=== PATIENT | female | born 1940 | race Two or more races ===

== ENCOUNTER 2020-04-14 21:06 | Emergency (ER) | payer BC, MEDICAID ==
[~2020-04-14] VITALS: Ht 154.9 cm; Wt 49.4 kg
[2020-04-14] MEDS ORDERED: Lidocaine 2% 20mg/ml/EPI 0.01mg/ml 20ml INJ ONE (21:15)
[2020-04-14] MEDS ORDERED: Tetanus/Diptheria/Pertussis IM ONE (21:15)
--- NOTE | 2020-04-14 21:15 | NUR ---
ED Nurse Note: Patient brought in [facility] due to fall at the facility around 1830. Patient came in with laceration and swelling on right forehead. Fall was unwitnessed per EMS, no reported LOC, no N&V. PAtient is AAOx1 and alert. Minimal bleeding noted.
--- NOTE | 2020-04-14 21:16 | Emergency Room Report ---
History of Present Illness General Chief Complaint: Multiple Trauma/Fall Source: Medical Record, EMS Present Illness HPI Patient is an 79-year-old female past medical history of dementia, CVA on Xarelto who was brought in from her extended care facility to the ER by EMS status post fall. Fall was unwitnessed. Patient has laceration to her right forehead. Unable to obtain further history. 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 Patient signed out to Dr. Mora at 2200. Last Vital Signs Date Time Temp Pulse Resp B/P (MAP) Pulse Ox O2 Delivery O2 Flow Rate FiO2 04/14/20 21:10 98.2 89 18 145/79 (101) 99 Room Air Elena Rice M.D. Apr 14, 2020 21:16
--- NOTE | 2020-04-14 21:16 | NUR ---
ED Nurse Note: ERMD at bedside
[2020-04-14 21:30] VITALS: BP 145/79
--- NOTE | 2020-04-14 21:40 | NUR ---
ED Nurse Note: CT scan done
--- NOTE | 2020-04-14 22:00 | NUR ---
ED Nurse Note: Suturing done by ERMD at bedside
--- NOTE | 2020-04-14 22:12 | Diagnostic Imaging Report ---
EXAM: CT Maxillofacial Without Intravenous Contrast CLINICAL HISTORY: FALL TECHNIQUE: Axial computed tomography images of the face without intravenous contrast. CTDI is 15.3 mGy and DLP is 320.0 mGy-cm. One or more of the following dose reduction techniques were used: automated exposure control, adjustment of the mA and/or kV according to patient size, use of iterative reconstruction technique. COMPARISON: No relevant prior studies available. FINDINGS: Bones/joints: No acute fracture. Soft tissues: Mild right periorbital soft tissue swelling. Orbits: Unremarkable. Sinuses: Unremarkable. No air-fluid levels. Brain: Geographic region of hypoattenuation in the left cerebral hemisphere is consistent with a large remote left MCA distribution infarct. There is atrophy and central hypoattenuation within the left cerebral peduncle consistent with wallerian degeneration. Additional smaller regions of hypoattenuation involving the cortical and subcortical white matter in the right anterior frontal and the superior right parietal and temporal distributions likely represent additional areas of smaller remote infarcts. Patchy and confluent regions of hypoattenuation scattered throughout the supratentorial white matter are nonspecific, but likely sequela of chronic microvascular ischemic disease. There is mild generalized cerebral volume loss. Ventricles: Mild ex vacuo dilatation of the left lateral ventricle. IMPRESSION: Mild right periorbital soft tissue swelling. Remote cerebral infarct changes, as above.
--- NOTE | 2020-04-14 22:15 | Diagnostic Imaging Report ---
EXAM: CT Head Without Intravenous Contrast CLINICAL HISTORY: FALL TECHNIQUE: Axial computed tomography images of the head/brain without intravenous contrast. CTDI is 53.4 mGy and DLP is 911.8 mGy-cm. One or more of the following dose reduction techniques were used: automated exposure control, adjustment of the mA and/or kV according to patient size, use of iterative reconstruction technique. COMPARISON: No relevant prior studies available. FINDINGS: Brain: Geographic region of hypoattenuation in the left cerebral hemisphere is consistent with a large remote left MCA distribution infarct. There is atrophy and central hypoattenuation within the left cerebral peduncle consistent with wallerian degeneration. Additional smaller regions of hypoattenuation involving the cortical and subcortical white matter in the right anterior frontal and the superior right parietal and temporal distributions likely represent additional areas of smaller remote infarcts. Patchy and confluent regions of hypoattenuation scattered throughout the supratentorial white matter are nonspecific, but likely sequela of chronic microvascular ischemic disease. There is mild generalized cerebral volume loss. No hemorrhage. Ventricles: Mild ex vacuo dilatation of the left lateral ventricle. Bones/joints: Unremarkable. No acute fracture. Soft tissues: Unremarkable. Sinuses: Unremarkable as visualized. No acute sinusitis. Mastoid air cells: Unremarkable as visualized. No mastoid effusion. IMPRESSION: No acute findings in the head/brain. 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 Smaller remote infarcts also suspected within the right cerebral hemisphere.
--- NOTE | 2020-04-14 22:20 | Diagnostic Imaging Report ---
EXAM: CT Cervical Spine Without Intravenous Contrast CLINICAL HISTORY: FALL TECHNIQUE: Axial computed tomography images of the cervical spine without intravenous contrast. CTDI is 20.0 mGy and DLP is 414.5 mGy-cm. One or more of the following dose reduction techniques were used: automated exposure control, adjustment of the mA and/or kV according to patient size, use of iterative reconstruction technique. COMPARISON: No relevant prior studies available. FINDINGS: Vertebrae: Unremarkable. No acute fracture. Discs/spinal canal/neural foramina: No acute findings. No spinal canal stenosis. Soft tissues: Unremarkable. Vasculature: Mild atherosclerotic calcifications of both left and right carotids. Scattered calcifications of both left and right vertebral arteries. IMPRESSION: No acute findings in the cervical spine.
--- NOTE | 2020-04-14 22:26 | Emergency Room Report ---
History of Present Illness General Chief Complaint: Multiple Trauma/Fall Source: Medical Record, EMS Present Illness HPI This patient was signed out to me. She is an elderly 79-year-old female from [facility]. She had a unwitnessed fall and sustained a laceration to her forehead. CT scan was signed out to me along with the laceration repair. 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 COVID-19 Screening: Negative COVID-19 COVID-19 Testing Source: snf Nursing Documentation-PMH Hx Cardiac Problems: Yes Hx Hypertension: Yes Hx Neurological Problems: Yes - APHASIA Hx Cerebrovascular Accident: Yes Physical Exam Vital Signs Date Time Temp Pulse Resp B/P (MAP) Pulse Ox O2 Delivery O2 Flow Rate FiO2 04/14/20 21:10 98.2 89 18 145/79 (101) 99 Room Air Procedures Laceration/Wound Repair Laceration/Wound Repair : Consent: Verbal Wound Location: face Wound's Depth, Shape: irregular, contused tissue Wound Length (cm): 3 Wound Explored: clean Irrigated w/ Saline (ccs): 1000 Anesthesia: 1% Lidocaine Volume Anesthetic (ccs): 3 Wound Repaired With: sutures Suture Size/Type: 4:0, other - Chromic Number of Sutures: 3 Patient Tolerated: Well Complications: None Medical Decision Making Diagnostic Impression: Primary Impression: Fall Qualified Codes: W19.XXXA - Unspecified fall, initial encounter Additional Impressions: Forehead laceration Qualified Codes: S01.81XA - Laceration without foreign body of other part of head, initial encounter Head injury, acute Qualified Codes: S09.90XA - Unspecified injury of head, initial encounter ER Course Patient presents with a fall and sustained soft tissue injury with head laceration. No evidence of intracranial bleed or skull fracture. No cervical spine injury. Will discharge home. CT/MRI/US Diagnostic Results CT/MRI/US Diagnostic Results #1: Imaging Test Ordered: CT head Impression Read by radiologist. No acute finding. 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 CT/MRI/US Diagnostic Results #2: Imaging Test Ordered: CT facial bones Impression Read by radiologist. Mild right periorbital soft tissue swelling. No facial fracture. CT/MRI/US Diagnostic Results #3: Imaging Test Ordered: CT C-spine Impression Read by radiologist. No acute finding in the cervical spine. Last Vital Signs Date Time Temp Pulse Resp B/P (MAP) Pulse Ox O2 Delivery O2 Flow Rate FiO2 04/14/20 21:10 98.2 89 18 145/79 (101) 99 Room Air Status: improved Disposition: SNF Condition: Stable Referrals: Yohannes Soto M.D. (PCP) Additional Instructions: Fall precautions. Sutures will fall off. Follow-up with your doctor in 7 days. Return if worse. Joaquin Mora MD Apr 14, 2020 22:26
--- NOTE | 2020-04-14 22:45 | NUR ---
ED Nurse Note: Discharge instruction instructed over to the phone to [facility] staff [facility]
[2020-04-14 23:15] VITALS: BP 141/79
--- NOTE | 2020-04-14 23:15 | NUR ---
ER DISCHARGE NOTE: Patient is cleared to be discharged per ERMD, pt is aox4, on room air, with stable vital signs. dc and prescription instructions instructed to ambulance personnel and SNF's staff over the phone, able to verbalize understanding, pt id band removed. pt was picked up by [facility] going back to [facility]. Pt transported safely to the [facility] and into the ambulance. pt took all belongings.
== END 2020-04-14 23:15 ==
LOC: EDBD 21:06 → EMR 21:29
DX: S01.81XA Laceration without foreign body of other part of head, initial encounter (principal); W19.XXXA Unspecified fall, initial encounter; Y92.129 Unspecified place in nursing home as the place of occurrence of the external cause; Z23 Encounter for immunization; I10 Essential (primary) hypertension
CPT/HCPCS: 70450; 70486; 72125; 90471; 90715; 99284